=== PATIENT | male | born 1980 | race Caucasian/White ===

== ENCOUNTER → 2017-08-09 | Outpatient (CLI) | payer MEDICAID ==
[~2017-08-09] MED LIST: BACTRIM DS 8001 TA1 PO; BUPRENORPHINE H1 TAB SL; ETODOLAC400 MG PO; KEFLEX 500MG.500 MG PO; LISINOPRIL 5MG T5 MG PO; NICOTINE PATCH;21 MG TD; NOMEDS XX; SEROQUEL 25MG T25 MG PO
[2017-08-09 16:37] LABS: HEMOGLOBIN 16.1 g/dL (14.1-18.0); LYMPH # 1.5 K/mm3 (0.7-4.5); LYMPH % 34.1 % (10-50)
[2017-08-09 19:19] LABS: BUN 11 mg/dL (7-18)
[2017-08-09 19:38] LABS: GFR (ESTIMATED) 84 ML/MIN (>60)
[2017-08-11 08:46] LABS: HIV Screen 4th Generation wRfx Non Reactive (Non Reactive); Hep A Ab, Total Negative (Negative); Hep B Core Ab, Tot Negative (Negative); Hep B Surface Ab, Qual Reactive (.)
[2017-08-12 10:39] LABS: HBsAg Screen Negative (Negative); Hep B Core Ab, IgM Negative (Negative)
[2017-08-13 03:37] LABS: Hepatitis C Genotype 1b (.)
== END ==
LOC: LAB 15:52
PROVIDERS: Nurse Practitioner Acute Care
DX: R76.8 Other specified abnormal immunological findings in serum (principal)
CPT/HCPCS: G0432